=== PATIENT | female | born 1935 | race Two or more races ===

== ENCOUNTER 2021-11-17 22:48 | Observation (INO) | payer OTHER ==
[2021-11-17 23:02] VITALS: BMI 15.9
[2021-11-17] MEDS ORDERED: ACETAMINOPHEN 1000 MG/100 ML BAG IVPB ONE (23:39)
[2021-11-18 01:51] LABS: BASO % 0.3 % (0-2.0); EOS % 0.7 % (0-4.5); LYMPH % 7.4 % (8-40); MCH 22.5 pg (25.7-33.7); MCHC 31.9 g/dl (32.0-36.0); MEAN CELL VOLUME 70.4 fl (80-96); MEAN PLT VOLUME 7.3 fl (7.5-11.1); MONO % 3.5 % (3.8-10.2); NEUT % 88.1 % (42.8-82.8); PLATELET COUNT 530 10^3/uL (134-434); RBC 3.12 M/mm3 (3.60-5.2); RDW 17.3 % (11.6-15.6); WHITE BLOOD COUNT 8.6 K/mm3 (4.0-10.0)
[2021-11-18 02:12] LABS: ALBUMIN 3.4 g/dl (3.4-5.0); BLOOD UREA NITROGEN 24.2 mg/dL (7-18); CALCIUM 8.9 mg/dL (8.5-10.1)
[2021-11-18 02:16] LABS: CREATININE 1.4 mg/dL (0.55-1.3)
[2021-11-18 02:18] LABS: BILIRUBIN,TOTAL 0.8 mg/dL (0.2-1); TOT PROT 8.3 g/dl (6.4-8.2)
[2021-11-18] MEDS ORDERED: ACETAMINOPHEN INJECTION 100 ML IVPB ONE (03:03)
[2021-11-18] MEDS ORDERED: ACETAMINOPHEN 1000 MG/100 ML BAG IVPB PRN (04:27)
[2021-11-18] MEDS ORDERED: SODIUM CHLORIDE 500 ML IV STA (04:55)
[2021-11-18] MEDS ORDERED: SODIUM CHLORIDE 1,000 ML IV SCH (07:45)
[2021-11-18 08:22] LABS: BASO % 0.4 % (0-2.0); EOS % 0.7 % (0-4.5); LYMPH % 14.7 % (8-40); MCH 21.9 pg (25.7-33.7); MCHC 30.8 g/dl (32.0-36.0); MONO % 6.5 % (3.8-10.2); NEUT % 77.7 % (42.8-82.8); PLATELET COUNT 439 10^3/uL (134-434); RBC 2.82 M/mm3 (3.60-5.2); RDW 17.1 % (11.6-15.6)
[2021-11-18 08:36] LABS: HEMOGLOBIN 6.2 GM/dL (10.7-15.3)
[2021-11-18 08:39] LABS: BLOOD UREA NITROGEN 20.4 mg/dL (7-18); CALCIUM 8.6 mg/dL (8.5-10.1)
[2021-11-18 08:41] LABS: ALBUMIN 2.9 g/dl (3.4-5.0)
[2021-11-18 08:42] LABS: PHOSPHOROUS 3.3 mg/dL (2.5-4.9)
[2021-11-18 08:43] LABS: CREATININE 1.4 mg/dL (0.55-1.3)
[2021-11-18 08:44] LABS: BILIRUBIN,TOTAL 0.6 mg/dL (0.2-1); TOT PROT 7.2 g/dl (6.4-8.2)
[2021-11-18] MEDS ORDERED: ASPIRIN 81 MG CHEWABLE TABLETS PO SCH (10:00)
[2021-11-18] MEDS ORDERED: POLYETHYLENE GLYCOL (HEALTHYLAX) 3350 17 GM PACKET PO SCH (10:00)
[2021-11-18] MEDS ORDERED: LOSARTAN POTASSIUM 50 MG TABLET PO SCH (10:00)
[2021-11-18] MEDS ORDERED: FAMOTIDINE 20 MG TABLET PO SCH (10:00)
[2021-11-18] MEDS ORDERED: amLODIPine BESYLATE 5 MG TABLET (FP) PO SCH (10:00)
[2021-11-18] MEDS ORDERED: POLYETHYLENE GLYCOL (HEALTHYLAX) 3350 17 GM PACKET ONE (10:37)
[2021-11-18] MEDS ORDERED: amLODIPine BESYLATE 5 MG TABLET (FP) ONE (10:37)
[2021-11-18] MEDS ORDERED: LOSARTAN POTASSIUM 50 MG TABLET ONE (10:38)
[2021-11-18] MEDS ORDERED: FAMOTIDINE 20 MG TABLET ONE (10:38)
[2021-11-18] MEDS ORDERED: IRON SUCROSE INJECTION 200 MG in SODIUM CHLORIDE 90 ML IVPB ONE (11:00)
[2021-11-18 11:29] LABS: RETICULOCYTES 1.12 % (0.5-1.5)
[2021-11-18 12:44] LABS: ANISOCYTOSIS 2+; MACROCYTOSIS 0; OVALOCYTE 1+
[2021-11-18 13:50] VITALS: PULSE 63
[2021-11-18 18:14] VITALS: BP 135/90; TEMP 97.7
== END 2021-11-18 20:35 | disposition left against medical advice (07) ==
LOC: JER 22:48 → JERBED 11-18 03:33 → UNDOADMOB 11-18 03:33 → JERBED 11-18 19:02 → J4W 11-18 19:10
PROVIDERS: ADMIT Hospitalist; ATTEND Nurse Practitioner Acute Care
PROC: 3E033NZ Introduction of Analgesics, Hypnotics, Sedatives into Peripheral Vein, Percutaneous Approach (ICD-10-PCS; principal; 2021-11-18)
PROC: 3E033GC Introduction of Other Therapeutic Substance into Peripheral Vein, Percutaneous Approach (ICD-10-PCS; 2021-11-18)
PROC: 3E0337Z Introduction of Electrolytic and Water Balance Substance into Peripheral Vein, Percutaneous Approach (ICD-10-PCS; 2021-11-18)
DX: S09.90XA Unspecified injury of head, initial encounter (principal); D50.9 Iron deficiency anemia, unspecified; I10 Essential (primary) hypertension; Z29.8 Encounter for other specified prophylactic measures; V78.1XXA Passenger on bus injured in noncollision transport accident in nontraffic accident, initial encounter; Y93.89 Activity, other specified; Z88.8 Allergy status to other drugs, medicaments and biological substances
CPT/HCPCS: 0241U-QW; 36415; 70450-TC; 71045-TC-FY; 72125-TC; 72170-TC-FY; 73502-TC-LT-FY; 80053; 82272; 82607; 82728; 82746; 83010; 83540; 83550; 83615; 83735; 84100; 84443; 84484; 85025; 85045; 86850; 86900; 86901; 86922; 93005; 93010; 96361; 96365; 96375; 97116-GP; 97161-GP; 99285-25; G0378; J1756

== ENCOUNTER 2022-04-01 15:05 | Inpatient (IN) | payer OTHER ==
[2022-04-01 16:22] LABS: BASO % 0.5 % (0-2.0); EOS % 0.6 % (0-4.5); HEMATOCRIT 20.1 % (32.4-45.2); LYMPH % 13.6 % (8-40); MCH 24.7 pg (25.7-33.7); MCHC 31.1 g/dl (32.0-36.0); MEAN CELL VOLUME 79.5 fl (80-96); MEAN PLT VOLUME 7.2 fl (7.5-11.1); MONO % 3.3 % (3.8-10.2); PLATELET COUNT 449 10^3/uL (134-434); RBC 2.53 M/mm3 (3.60-5.2); RDW 15.8 % (11.6-15.6)
[2022-04-01 16:41] LABS: HEMOGLOBIN 6.2 GM/dL (10.7-15.3)
[2022-04-01 16:42] LABS: CALCIUM 8.7 mg/dL (8.5-10.1); INR 1.12 (0.83-1.09); PROTHROMBIN TIME (PATIENT) 12.9 SEC (9.7-13.0)
[2022-04-01 16:43] LABS: ALBUMIN 2.8 g/dl (3.4-5.0); MAGNESIUM 2.1 mg/dL (1.8-2.4)
[2022-04-01 16:45] LABS: ACTIVATED PTT 24.2 SECONDS (25.2-36.5)
[2022-04-01 16:46] LABS: CREATININE 1.8 mg/dL (0.55-1.3)
[2022-04-01 16:48] LABS: BILIRUBIN,TOTAL 0.4 mg/dL (0.2-1); TOT PROT 6.4 g/dl (6.4-8.2)
[2022-04-01 16:49] LABS: LACTIC ACID 3.3 mmol/L (0.4-2.0)
[2022-04-01 22:38] LABS: EPI CELLS 11 /uL (0-25.1); HYALINE CASTS 0 /uL (0-3.1); URINE APPEARANCE TURBID; URINE BACTERIA 3402 /uL (0-1359); URINE BILIRUBIN NEGATIVE (NEGATIVE); URINE COLOR YELLOW; URINE GLUCOSE (UA) NEGATIVE (NEGATIVE); URINE KETONE NEGATIVE (NEGATIVE); URINE LEUK ESTERASE 3+ (NEGATIVE); URINE NITRITE POSITIVE (NEGATIVE); URINE PROTEIN TRACE (NEGATIVE); URINE RBC 20 /uL (0-23.9); URINE UROBILINOGEN 0.2 mg/dL (0.2-1.0); URINE WBC 3405 /uL (0-25.8)
[2022-04-02] MEDS ORDERED: LACTATED RINGERS SOLUTION 1,000 ML/1,000 ML INFUS.BAG IV SCH ×3 (02:45→17:34)
[2022-04-02] MEDS: INSULIN SLIDING SCALE (NOVOLOG) 1 VIAL SQ SCH ×4 (08:16→22:08)
[2022-04-02] MEDS ORDERED: CEFTRIAXONE 1 GM in DEXTROSE 5%-WATER - 50 ML IVPB SCH (10:00)
[2022-04-02] MEDS ORDERED: amLODIPine BESYLATE 5 MG TABLET (FP) PO SCH (10:00)
[2022-04-02] MEDS ORDERED: PANTOPRAZOLE 40 MG TABLET PO SCH (10:00)
[2022-04-02] MEDS ORDERED: LOSARTAN POTASSIUM 50 MG TABLET PO SCH (10:00)
[2022-04-02] MEDS ORDERED: PANTOPRAZOLE 40 MG TABLET PO ONE (10:36)
[2022-04-02] MEDS ORDERED: LOSARTAN POTASSIUM 50 MG TABLET ONE (10:36)
[2022-04-02] MEDS ORDERED: CEFTRIAXONE 1 GM/50 ML BAG ONE (10:36)
[2022-04-02] MEDS ORDERED: amLODIPine BESYLATE 5 MG TABLET (FP) ONE (10:36)
[2022-04-02 11:51] LABS: HEMOGLOBIN 9.3 GM/dL (10.7-15.3); MCH 26.8 pg (25.7-33.7); MCHC 32.2 g/dl (32.0-36.0); MEAN CELL VOLUME 83.3 fl (80-96); MEAN PLT VOLUME 7.9 fl (7.5-11.1); PLATELET COUNT 328 10^3/uL (134-434); RBC 3.49 M/mm3 (3.60-5.2); RDW 15.2 % (11.6-15.6); WHITE BLOOD COUNT 12.5 K/mm3 (4.0-10.0)
[2022-04-02 12:04] LABS: CALCIUM 8.6 mg/dL (8.5-10.1)
[2022-04-02 12:05] LABS: ALBUMIN 2.8 g/dl (3.4-5.0); BLOOD UREA NITROGEN 36.9 mg/dL (7-18); MAGNESIUM 2.2 mg/dL (1.8-2.4)
[2022-04-02 12:08] LABS: CREATININE 1.8 mg/dL (0.55-1.3); PHOSPHOROUS 3.6 mg/dL (2.5-4.9)
[2022-04-02 12:09] LABS: BILIRUBIN,TOTAL 0.9 mg/dL (0.2-1); TOT PROT 6.5 g/dl (6.4-8.2)
[2022-04-02 17:32] VITALS: BMI 18.8
[2022-04-03] MEDS: INSULIN SLIDING SCALE (NOVOLOG) 1 VIAL SQ SCH ×2 (06:21→14:01)
[2022-04-03 07:00] LABS: BASO % 0.6 % (0-2.0); EOS % 1.7 % (0-4.5); HEMATOCRIT 27.5 % (32.4-45.2); HEMOGLOBIN 9.1 GM/dL (10.7-15.3); LYMPH % 19.6 % (8-40); MCH 27.5 pg (25.7-33.7); MEAN CELL VOLUME 83.1 fl (80-96); MEAN PLT VOLUME 7.4 fl (7.5-11.1); MONO % 8.7 % (3.8-10.2); NEUT % 69.4 % (42.8-82.8); PLATELET COUNT 324 10^3/uL (134-434); RBC 3.31 M/mm3 (3.60-5.2); RDW 15.7 % (11.6-15.6); WHITE BLOOD COUNT 8.4 K/mm3 (4.0-10.0)
[2022-04-03] MEDS: LOSARTAN POTASSIUM 50 MG TABLET PO SCH (09:39)
[2022-04-03] MEDS: PANTOPRAZOLE 40 MG TABLET PO SCH (09:39)
[2022-04-03] MEDS: amLODIPine BESYLATE 5 MG TABLET (FP) PO SCH (09:39)
[2022-04-03] MEDS: CEFTRIAXONE 1 GM in DEXTROSE 5%-WATER - 50 ML IVPB SCH (09:39)
[2022-04-03 14:33] LABS: BLOOD UREA NITROGEN 27.3 mg/dL (7-18); CALCIUM 8.3 mg/dL (8.5-10.1)
[2022-04-03 14:37] LABS: CREATININE 1.8 mg/dL (0.55-1.3)
[2022-04-04 09:10] LABS: BASO % 0.6 % (0-2.0); EOS % 3.9 % (0-4.5); HEMATOCRIT 27.6 % (32.4-45.2); HEMOGLOBIN 9.1 GM/dL (10.7-15.3); LYMPH % 23.6 % (8-40); MCH 27.5 pg (25.7-33.7); MEAN CELL VOLUME 83.2 fl (80-96); MEAN PLT VOLUME 7.7 fl (7.5-11.1); MONO % 10.4 % (3.8-10.2); NEUT % 61.5 % (42.8-82.8); PLATELET COUNT 353 10^3/uL (134-434); RBC 3.31 M/mm3 (3.60-5.2); RDW 15.8 % (11.6-15.6); WHITE BLOOD COUNT 6.5 K/mm3 (4.0-10.0)
[2022-04-04 09:27] LABS: ALBUMIN 2.6 g/dl (3.4-5.0); BLOOD UREA NITROGEN 23.2 mg/dL (7-18); CALCIUM 8.5 mg/dL (8.5-10.1); MAGNESIUM 1.9 mg/dL (1.8-2.4)
[2022-04-04 09:30] LABS: CREATININE 1.7 mg/dL (0.55-1.3)
[2022-04-04 09:32] LABS: BILIRUBIN,TOTAL 0.6 mg/dL (0.2-1); TOT PROT 6.1 g/dl (6.4-8.2)
[2022-04-04] MEDS: LOSARTAN POTASSIUM 50 MG TABLET PO SCH (09:44)
[2022-04-04] MEDS: CEFTRIAXONE 1 GM in DEXTROSE 5%-WATER - 50 ML IVPB SCH (09:45)
[2022-04-04] MEDS: PANTOPRAZOLE 40 MG TABLET PO SCH (09:45)
[2022-04-04] MEDS: amLODIPine BESYLATE 5 MG TABLET (FP) PO SCH (09:45)
[2022-04-04] MEDS ORDERED: BISACODYL 5 MG TABLET.DR (FP) PO ONE (16:00)
[2022-04-04] MEDS ORDERED: PEG 3350/NA SULF BICARB CL/KCL 4000 ML SOLN.RECON PO ONE (17:00)
[2022-04-05 08:34] LABS: INR 1.17 (0.83-1.09); PROTHROMBIN TIME (PATIENT) 13.5 SEC (9.7-13.0)
[2022-04-05 08:35] LABS: BASO % 1.1 % (0-2.0); EOS % 2.4 % (0-4.5); HEMATOCRIT 29.7 % (32.4-45.2); HEMOGLOBIN 9.8 GM/dL (10.7-15.3); LYMPH % 22.6 % (8-40); MCH 27.6 pg (25.7-33.7); MEAN CELL VOLUME 83.7 fl (80-96); MEAN PLT VOLUME 7.5 fl (7.5-11.1); MONO % 7.9 % (3.8-10.2); PLATELET COUNT 384 10^3/uL (134-434); RBC 3.55 M/mm3 (3.60-5.2); WHITE BLOOD COUNT 7.2 K/mm3 (4.0-10.0)
[2022-04-05 09:29] LABS: BLOOD UREA NITROGEN 15.7 mg/dL (7-18); CALCIUM 8.7 mg/dL (8.5-10.1); CREATININE 1.6 mg/dL (0.55-1.3)
[2022-04-05] MEDS: PANTOPRAZOLE 40 MG TABLET PO SCH (11:07)
[2022-04-05] MEDS: LOSARTAN POTASSIUM 50 MG TABLET PO SCH (11:08)
[2022-04-05] MEDS: amLODIPine BESYLATE 5 MG TABLET (FP) PO SCH (11:08)
[2022-04-05] MEDS: CEFTRIAXONE 1 GM in DEXTROSE 5%-WATER - 50 ML IVPB SCH (11:09)
[2022-04-06] MEDS: PANTOPRAZOLE 40 MG TABLET PO SCH (10:13)
[2022-04-06] MEDS: LOSARTAN POTASSIUM 50 MG TABLET PO SCH (10:14)
[2022-04-06] MEDS: CEFTRIAXONE 1 GM in DEXTROSE 5%-WATER - 50 ML IVPB SCH (10:14)
[2022-04-06] MEDS: amLODIPine BESYLATE 5 MG TABLET (FP) PO SCH (10:14)
[2022-04-07 06:40] VITALS: RESP 18
[2022-04-07] MEDS: CEFTRIAXONE 1 GM in DEXTROSE 5%-WATER - 50 ML IVPB SCH (09:44)
[2022-04-07] MEDS: PANTOPRAZOLE 40 MG TABLET PO SCH (09:57)
[2022-04-07] MEDS: amLODIPine BESYLATE 5 MG TABLET (FP) PO SCH (09:57)
[2022-04-07] MEDS: LOSARTAN POTASSIUM 50 MG TABLET PO SCH (09:57)
[2022-04-07] MEDS ORDERED: SODIUM CHLORIDE 0.45% 1,000 ML IV SCH (12:00)
[2022-04-07 14:23] VITALS: BP 143/65; PULSE 60; TEMP 98
== END 2022-04-07 16:40 | disposition home or self-care (01) | DRG 378 ==
LOC: JER 15:05 → JERBED 17:46 → J8W 04-02 16:23
PROVIDERS: ADMIT Internal Medicine
PROC: 0DJD8ZZ Inspection of Lower Intestinal Tract, Via Natural or Artificial Opening Endoscopic (ICD-10-PCS; 2022-04-05)
PROC: 30233N1 Transfusion of Nonautologous Red Blood Cells into Peripheral Vein, Percutaneous Approach (ICD-10-PCS; 2022-04-05)
PROC: 0DB98ZX Excision of Duodenum, Via Natural or Artificial Opening Endoscopic, Diagnostic (ICD-10-PCS; principal; 2022-04-05 12:30)
DX: K26.4 Chronic or unspecified duodenal ulcer with hemorrhage (principal); Z68.1 Body mass index [BMI] 19.9 or less, adult; N39.0 Urinary tract infection, site not specified; N17.9 Acute kidney failure, unspecified; N13.30 Unspecified hydronephrosis; N18.4 Chronic kidney disease, stage 4 (severe); E78.5 Hyperlipidemia, unspecified; R63.4 Abnormal weight loss; E11.9 Type 2 diabetes mellitus without complications; D64.9 Anemia, unspecified; N13.9 Obstructive and reflux uropathy, unspecified; T39.395A Adverse effect of other nonsteroidal anti-inflammatory drugs [NSAID], initial encounter; D89.0 Polyclonal hypergammaglobulinemia; N81.3 Complete uterovaginal prolapse; E87.20 Acidosis, unspecified; G89.29 Other chronic pain; K57.90 Diverticulosis of intestine, part unspecified, without perforation or abscess without bleeding; I12.9 Hypertensive chronic kidney disease with stage 1 through stage 4 chronic kidney disease, or unspecified chronic kidney disease; K44.9 Diaphragmatic hernia without obstruction or gangrene; Z79.1 Long term (current) use of non-steroidal anti-inflammatories (NSAID)
CPT/HCPCS: 36415; 36430; 71045-TC-FY; 74176-TC; 76775-TC; 80048; 80053; 80061; 81003; 82272; 82728; 82962; 82977; 83036; 83540; 83550; 83605; 83615; 83735; 84100; 84443; 85025; 85027; 85045; 85610; 85730; 86850; 86900; 86901; 86922; 87086; 87186; 88305-TC; 93005; 93010; 99285-25; C9803-CS; P9058; U0003; U0005

== ENCOUNTER 2024-06-03 02:12 | Inpatient (IN) | payer OTHER ==
[2024-06-03 03:26] LABS: BASO % 0.2 % (0-2.0); EOS % 0.3 % (0-4.5); HEMATOCRIT 25.7 % (32.4-45.2); HEMOGLOBIN 8.2 GM/dL (10.7-15.3); MCH 27.7 pg (25.7-33.7); MCHC 31.9 g/dl (32.0-36.0); MEAN CELL VOLUME 86.7 fl (80-96); MEAN PLT VOLUME 7.4 fl (7.5-11.1); MONO % 2.8 % (3.8-10.2); NEUT % 88.7 % (42.8-82.8); PLATELET COUNT 280 10^3/uL (134-434); RBC 2.96 M/mm3 (3.60-5.2); RDW 14.4 % (11.6-15.6); WHITE BLOOD COUNT 8.7 K/mm3 (4.0-10.0)
[2024-06-03 03:35] LABS: INR 1.05 (0.83-1.09); PROTHROMBIN TIME (PATIENT) 12.1 SEC (9.7-13.0)
[2024-06-03 03:37] LABS: ACTIVATED PTT 23.1 SECONDS (25.2-36.5)
[2024-06-03 03:46] LABS: POTASSIUM 4.7 mmol/L (3.5-5.1)
[2024-06-03 03:49] LABS: CALCIUM 8.9 mg/dL (8.5-10.1)
[2024-06-03 03:50] LABS: ALBUMIN 3.2 g/dl (3.4-5.0); BLOOD UREA NITROGEN 38.4 mg/dL (7-18)
[2024-06-03 03:53] LABS: CREATININE 1.2 mg/dL (0.55-1.3)
[2024-06-03 03:54] LABS: BILIRUBIN,TOTAL 0.5 mg/dL (0.2-1); TOT PROT 6.8 g/dl (6.4-8.2)
[2024-06-03 04:45] LABS: HIV INTERPRETATION NEGATIVE (NEGATIVE)
[2024-06-03] MEDS ORDERED: LOSARTAN POTASSIUM 50 MG TABLET ONE ×2 (13:17→13:19)
[2024-06-03] MEDS ORDERED: amLODIPine BESYLATE 5 MG TABLET (FP) ONE (13:17)
[2024-06-03] MEDS ORDERED: PANTOPRAZOLE 40 MG TABLET PO ONE (13:17)
[2024-06-03] MEDS: LOSARTAN POTASSIUM 50 MG TABLET PO SCH (14:13)
[2024-06-03] MEDS: amLODIPine BESYLATE 5 MG TABLET (FP) PO SCH (14:13)
[2024-06-03] MEDS: PANTOPRAZOLE 40 MG TABLET PO SCH (14:13)
[2024-06-03 16:11] VITALS: BMI 15.6
[2024-06-03 16:53] LABS: BASO % 0.4 % (0-2.0); EOS % 0.1 % (0-4.5); HEMOGLOBIN 7.6 GM/dL (10.7-15.3); LYMPH % 17.9 % (8-40); MCH 27.2 pg (25.7-33.7); MCHC 31.5 g/dl (32.0-36.0); MEAN CELL VOLUME 86.3 fl (80-96); MEAN PLT VOLUME 7.9 fl (7.5-11.1); MONO % 7.1 % (3.8-10.2); NEUT % 74.5 % (42.8-82.8); PLATELET COUNT 250 10^3/uL (134-434); RBC 2.78 M/mm3 (3.60-5.2); RDW 14.3 % (11.6-15.6); WHITE BLOOD COUNT 6.2 K/mm3 (4.0-10.0)
[2024-06-04 09:29] LABS: BASO % 0.6 % (0-2.0); EOS % 2.9 % (0-4.5); HEMATOCRIT 21.8 % (32.4-45.2); LYMPH % 28.9 % (8-40); MCH 27.7 pg (25.7-33.7); MCHC 31.8 g/dl (32.0-36.0); MEAN PLT VOLUME 8.6 fl (7.5-11.1); MONO % 9.1 % (3.8-10.2); NEUT % 58.5 % (42.8-82.8); PLATELET COUNT 217 10^3/uL (134-434); RBC 2.51 M/mm3 (3.60-5.2); RDW 14.1 % (11.6-15.6); WHITE BLOOD COUNT 4.3 K/mm3 (4.0-10.0)
[2024-06-04 09:36] LABS: POTASSIUM 5.3 mmol/L (3.5-5.1)
[2024-06-04 09:44] LABS: BLOOD UREA NITROGEN 30.9 mg/dL (7-18); CALCIUM 9.1 mg/dL (8.5-10.1)
[2024-06-04 09:46] LABS: HEMOGLOBIN 6.9 GM/dL (10.7-15.3)
[2024-06-04 09:47] LABS: CREATININE 1.4 mg/dL (0.55-1.3)
[2024-06-04 15:35] LABS: ALBUMIN 2.9 g/dl (3.4-5.0)
[2024-06-04 15:38] LABS: BILIRUBIN,DIRECT 0.2 mg/dL (0.0-0.2)
[2024-06-04 15:40] LABS: BILIRUBIN,TOTAL 0.4 mg/dL (0.2-1); TOT PROT 6.2 g/dl (6.4-8.2)
[2024-06-04] MEDS: LIDOCAINE 5% TOPICAL PATCH TP SCH (15:57)
[2024-06-04] MEDS: PEG 3350/NA SULF BICARB CL/KCL 4000 ML SOLN.RECON PO ONE (16:39)
[2024-06-04 17:17] LABS: BASO % 0.4 % (0-2.0); HEMATOCRIT 25.3 % (32.4-45.2); HEMOGLOBIN 8.3 GM/dL (10.7-15.3); LYMPH % 15.6 % (8-40); MCH 28.1 pg (25.7-33.7); MCHC 32.6 g/dl (32.0-36.0); MEAN CELL VOLUME 86.3 fl (80-96); MEAN PLT VOLUME 7.8 fl (7.5-11.1); MONO % 7.2 % (3.8-10.2); NEUT % 75.8 % (42.8-82.8); PLATELET COUNT 223 10^3/uL (134-434); RBC 2.94 M/mm3 (3.60-5.2); RDW 13.9 % (11.6-15.6); WHITE BLOOD COUNT 7.3 K/mm3 (4.0-10.0)
[2024-06-04] MEDS ORDERED: BISACODYL 5 MG TABLET.DR (FP) PO ONE (20:00)
[2024-06-04] MEDS: BISACODYL 5 MG TABLET.DR (FP) PO ONE (22:50)
[2024-06-04] MEDS: LIDOCAINE PATCH REMOVAL MC SCH (22:51)
[2024-06-05 08:37] LABS: BASO % 0.7 % (0-2.0); EOS % 1.1 % (0-4.5); HEMOGLOBIN 8.2 GM/dL (10.7-15.3); MCH 28.2 pg (25.7-33.7); MCHC 32.8 g/dl (32.0-36.0); MEAN PLT VOLUME 9.1 fl (7.5-11.1); MONO % 8.7 % (3.8-10.2); NEUT % 68.5 % (42.8-82.8); PLATELET COUNT 208 10^3/uL (134-434); RBC 2.91 M/mm3 (3.60-5.2); RDW 13.7 % (11.6-15.6); WHITE BLOOD COUNT 6.9 K/mm3 (4.0-10.0)
[2024-06-05 08:59] LABS: POTASSIUM 5.3 mmol/L (3.5-5.1)
[2024-06-05 09:04] LABS: ALBUMIN 2.9 g/dl (3.4-5.0); CALCIUM 8.9 mg/dL (8.5-10.1)
[2024-06-05 09:05] LABS: BLOOD UREA NITROGEN 26.2 mg/dL (7-18)
[2024-06-05 09:08] LABS: CREATININE 1.3 mg/dL (0.55-1.3)
[2024-06-05 09:09] LABS: BILIRUBIN,TOTAL 0.9 mg/dL (0.2-1); TOT PROT 6.4 g/dl (6.4-8.2)
[2024-06-05] MEDS: LACTATED RINGERS SOLUTION 1,000 ML/1,000 ML INFUS.BAG IV SCH (09:54)
[2024-06-05 18:27] VITALS: RESP 18
[2024-06-06 07:49] LABS: BASO % 0.3 % (0-2.0); EOS % 1.6 % (0-4.5); HEMATOCRIT 25.6 % (32.4-45.2); HEMOGLOBIN 8.4 GM/dL (10.7-15.3); MCHC 32.6 g/dl (32.0-36.0); MEAN CELL VOLUME 85.8 fl (80-96); MEAN PLT VOLUME 7.9 fl (7.5-11.1); MONO % 7.5 % (3.8-10.2); NEUT % 69.6 % (42.8-82.8); PLATELET COUNT 248 10^3/uL (134-434); RBC 2.99 M/mm3 (3.60-5.2); RDW 13.8 % (11.6-15.6)
[2024-06-06 08:08] LABS: POTASSIUM 4.3 mmol/L (3.5-5.1)
[2024-06-06 08:12] LABS: ALBUMIN 2.8 g/dl (3.4-5.0); BLOOD UREA NITROGEN 19.3 mg/dL (7-18)
[2024-06-06 08:13] LABS: CALCIUM 8.8 mg/dL (8.5-10.1)
[2024-06-06 08:16] LABS: CREATININE 1.2 mg/dL (0.55-1.3)
[2024-06-06 08:17] LABS: TOT PROT 6.1 g/dl (6.4-8.2)
[2024-06-06 08:18] LABS: BILIRUBIN,TOTAL 0.6 mg/dL (0.2-1)
[2024-06-06 10:40] VITALS: BP 151/73; PULSE 69; TEMP 97.5
== END 2024-06-06 13:04 | disposition home or self-care (01) | DRG 378 ==
LOC: JER 02:12 → JERBED 11:14 → J7W 14:31 → OBSVTOIN 06-04 10:45
PROVIDERS: ADMIT Internal Medicine
PROC: 30233N1 Transfusion of Nonautologous Red Blood Cells into Peripheral Vein, Percutaneous Approach (ICD-10-PCS; principal; 2024-06-04)
PROC: 0DBN8ZX Excision of Sigmoid Colon, Via Natural or Artificial Opening Endoscopic, Diagnostic (ICD-10-PCS; 2024-06-05)
PROC: 0W3P8ZZ Control Bleeding in Gastrointestinal Tract, Via Natural or Artificial Opening Endoscopic (ICD-10-PCS; 2024-06-05)
PROC: 0DB68ZX Excision of Stomach, Via Natural or Artificial Opening Endoscopic, Diagnostic (ICD-10-PCS; 2024-06-05)
PROC: 0DC98ZZ Extirpation of Matter from Duodenum, Via Natural or Artificial Opening Endoscopic (ICD-10-PCS; 2024-06-05)
PROC: 0DB98ZX Excision of Duodenum, Via Natural or Artificial Opening Endoscopic, Diagnostic (ICD-10-PCS; 2024-06-05)
DX: K57.31 Diverticulosis of large intestine without perforation or abscess with bleeding (principal); D62 Acute posthemorrhagic anemia; N13.30 Unspecified hydronephrosis; E44.0 Moderate protein-calorie malnutrition; Z68.1 Body mass index [BMI] 19.9 or less, adult; I95.9 Hypotension, unspecified; R55 Syncope and collapse; I12.9 Hypertensive chronic kidney disease with stage 1 through stage 4 chronic kidney disease, or unspecified chronic kidney disease; N18.30 Chronic kidney disease, stage 3 unspecified; K21.9 Gastro-esophageal reflux disease without esophagitis; K44.9 Diaphragmatic hernia without obstruction or gangrene; K29.60 Other gastritis without bleeding; N81.4 Uterovaginal prolapse, unspecified; Z87.19 Personal history of other diseases of the digestive system; Z90.49 Acquired absence of other specified parts of digestive tract; Y93.9 Activity, unspecified; Y92.098 Other place in other non-institutional residence as the place of occurrence of the external cause; Y99.9 Unspecified external cause status; W18.30XA Fall on same level, unspecified, initial encounter
CPT/HCPCS: 0241U-QW; 36415; 36430; 70450-TC; 71045-TC-FY; 72125-TC; 74174-TC; 80048; 80053; 80076; 82962; 82977; 83036; 83605; 84484; 85025; 85610; 85730; 86803; 86850; 86900; 86901; 86922; 87389; 88305-TC; 88342-TC; 99285-25; G0378; P9058

== ENCOUNTER 2024-06-29 11:27 | Inpatient (IN) | payer OTHER ==
[2024-06-29 12:27] LABS: BASO % 0.5 % (0-2.0); EOS % 0.7 % (0-4.5); HEMATOCRIT 29.2 % (32.4-45.2); HEMOGLOBIN 9.4 GM/dL (10.7-15.3); MCH 28.1 pg (25.7-33.7); MCHC 32.3 g/dl (32.0-36.0); MEAN CELL VOLUME 87.1 fl (80-96); MEAN PLT VOLUME 7.2 fl (7.5-11.1); MONO % 9.2 % (3.8-10.2); NEUT % 71.6 % (42.8-82.8); PLATELET COUNT 337 10^3/uL (134-434); RBC 3.35 M/mm3 (3.60-5.2); RDW 14.2 % (11.6-15.6); WHITE BLOOD COUNT 5.8 K/mm3 (4.0-10.0)
[2024-06-29 12:51] LABS: POTASSIUM 5.8 mmol/L (3.5-5.1)
[2024-06-29 12:53] LABS: ALBUMIN 3.4 g/dl (3.4-5.0); BLOOD UREA NITROGEN 32.6 mg/dL (7-18); CALCIUM 9.5 mg/dL (8.5-10.1)
[2024-06-29 12:56] LABS: CREATININE 1.5 mg/dL (0.55-1.3)
[2024-06-29 12:58] LABS: BILIRUBIN,TOTAL 0.5 mg/dL (0.2-1)
[2024-06-29] MEDS ORDERED: CALCIUM GLUC IN NACL, ISO-OSM 1 GM/50 ML BAG IVPB ONE (13:13)
[2024-06-29] MEDS ORDERED: INSULIN REGULAR HUMAN 100 UNITS/ML *VIAL ONE (13:13)
[2024-06-29] MEDS ORDERED: DEXTROSE 50%-WATER 25 GM/50 ML DISP.SYRIN ONE (13:13)
[2024-06-29] MEDS: CALCIUM GLUCONATE 10% - 1,000 MG/10 ML VIAL IVPB ONE (13:25)
[2024-06-29] MEDS: DEXTROSE 50%-WATER - 25 GM/50 ML VIAL IVPUSH ONE ×2 (13:25→19:09)
[2024-06-29] MEDS: INSULIN REGULAR HUMAN 100 UNITS/ML *VIAL IVPUSH ONE ×2 (13:25→19:03)
[2024-06-29] MEDS: SODIUM CHLORIDE 0.9% 500 ML INFUS.BAG IV ONE (13:26)
[2024-06-29] MEDS ORDERED: SODIUM ZIRCONIUM CYCLOSILICATE (LOKELMA) 10 GM PACKET ONE (13:57)
[2024-06-29] MEDS: SODIUM ZIRCONIUM CYCLOSILICATE (LOKELMA) 5 GM PACKET PO SCH ×2 (14:05→22:09)
[2024-06-29 15:07] LABS: EPI CELLS 18 /uL (0-25.1); HYALINE CASTS 2 /uL (0-3.1); PH,URINE 6.5 (5.0-8.0); URINE APPEARANCE TURBID; URINE BACTERIA 5858 /uL (0-1359); URINE BILIRUBIN NEGATIVE (NEGATIVE); URINE COLOR YELLOW; URINE GLUCOSE (UA) NEGATIVE (NEGATIVE); URINE KETONE NEGATIVE (NEGATIVE); URINE LEUK ESTERASE 3+ (NEGATIVE); URINE NITRITE NEGATIVE (NEGATIVE); URINE PROTEIN 1+ (NEGATIVE); URINE UROBILINOGEN 0.2 mg/dL (0.2-1.0); URINE WBC 13653 /uL (0-25.8)
[2024-06-29 15:27] LABS: POTASSIUM 5.8 mmol/L (3.5-5.1)
[2024-06-29 15:29] LABS: ALBUMIN 3.2 g/dl (3.4-5.0); BLOOD UREA NITROGEN 31.4 mg/dL (7-18); CALCIUM 9.4 mg/dL (8.5-10.1)
[2024-06-29 15:32] LABS: CREATININE 1.4 mg/dL (0.55-1.3)
[2024-06-29 15:34] LABS: BILIRUBIN,TOTAL 0.6 mg/dL (0.2-1); TOT PROT 7.5 g/dl (6.4-8.2)
[2024-06-29] MEDS: CEFTRIAXONE 1,000 MG in DEXTROSE 5%-WATER - 50 ML IVPB ONE (15:34)
[2024-06-29] MEDS ORDERED: CEFTRIAXONE 1 G/50 ML PREMIX 50 ML IVPB ONE (15:35)
[2024-06-29 15:51] LABS: URINE RBC 289 /uL (0-23.9)
[2024-06-29 15:52] LABS: YEAST NONE SEEN (NEGATIVE)
[2024-06-29 17:03] LABS: POTASSIUM 5.6 mmol/L (3.5-5.1)
[2024-06-29 17:04] LABS: CALCIUM 9.1 mg/dL (8.5-10.1)
[2024-06-29 17:05] LABS: BLOOD UREA NITROGEN 31.2 mg/dL (7-18)
[2024-06-29 17:08] LABS: CREATININE 1.4 mg/dL (0.55-1.3)
[2024-06-29 18:14] VITALS: BMI 18.7
[2024-06-29] MEDS: DEXTROSE 50%-WATER 25 GM/50 ML DISP.SYRIN IVPUSH ONE (19:03)
[2024-06-29] MEDS: HEPARIN NA (PORCINE) 5,000 UNITS/ML 1ML VIAL SQ SCH (22:09)
[2024-06-29 22:25] LABS: POTASSIUM 5.3 mmol/L (3.5-5.1)
[2024-06-29 22:27] LABS: BLOOD UREA NITROGEN 30.2 mg/dL (7-18); CALCIUM 9.2 mg/dL (8.5-10.1)
[2024-06-29 22:31] LABS: CREATININE 1.7 mg/dL (0.55-1.3)
[2024-06-30 09:08] LABS: BASO % 0.6 % (0-2.0); EOS % 3.8 % (0-4.5); HEMOGLOBIN 8.6 GM/dL (10.7-15.3); LYMPH % 27.9 % (8-40); MCH 27.7 pg (25.7-33.7); MCHC 31.7 g/dl (32.0-36.0); MEAN CELL VOLUME 87.5 fl (80-96); MEAN PLT VOLUME 7.7 fl (7.5-11.1); MONO % 8.8 % (3.8-10.2); NEUT % 58.9 % (42.8-82.8); PLATELET COUNT 301 10^3/uL (134-434); RBC 3.09 M/mm3 (3.60-5.2); RDW 14.1 % (11.6-15.6); WHITE BLOOD COUNT 5.4 K/mm3 (4.0-10.0)
[2024-06-30 09:17] LABS: CALCIUM 8.8 mg/dL (8.5-10.1); POTASSIUM 5.5 mmol/L (3.5-5.1)
[2024-06-30 09:18] LABS: BLOOD UREA NITROGEN 29.9 mg/dL (7-18)
[2024-06-30 09:21] LABS: CREATININE 1.5 mg/dL (0.55-1.3)
[2024-06-30] MEDS: CEFTRIAXONE 1 G/50 ML PREMIX 50 ML IVPB SCH (10:18)
[2024-06-30] MEDS: PANTOPRAZOLE 20 MG TABLET PO SCH (10:18)
[2024-06-30] MEDS: amLODIPine BESYLATE 5 MG TABLET (FP) PO SCH (10:18)
[2024-06-30] MEDS: SODIUM CHLORIDE 0.45% 1,000 ML IV SCH (16:13)
[2024-07-01 09:23] LABS: BASO % 0.6 % (0-2.0); EOS % 3.2 % (0-4.5); HEMATOCRIT 27.9 % (32.4-45.2); LYMPH % 31.5 % (8-40); MCH 27.9 pg (25.7-33.7); MCHC 32.2 g/dl (32.0-36.0); MEAN CELL VOLUME 86.8 fl (80-96); MEAN PLT VOLUME 7.6 fl (7.5-11.1); MONO % 8.3 % (3.8-10.2); NEUT % 56.4 % (42.8-82.8); PLATELET COUNT 327 10^3/uL (134-434); RBC 3.21 M/mm3 (3.60-5.2); RDW 14.3 % (11.6-15.6); WHITE BLOOD COUNT 4.3 K/mm3 (4.0-10.0)
[2024-07-01 09:53] LABS: CALCIUM 9.1 mg/dL (8.5-10.1)
[2024-07-01 09:57] LABS: CREATININE 1.3 mg/dL (0.55-1.3)
[2024-07-01 09:58] LABS: BILIRUBIN,TOTAL 0.5 mg/dL (0.2-1)
[2024-07-01] MEDS: ACETAMINOPHEN 325 MG TABLET (FP) PO ONE (14:29)
[2024-07-01 14:58] VITALS: BP 155/71; PULSE 54; RESP 18; TEMP 99
[2024-07-02] MEDS ORDERED: SODIUM ZIRCONIUM CYCLOSILICATE (LOKELMA) 5 GM PACKET PO SCH (10:00)
== END 2024-07-01 16:03 | disposition home or self-care (01) | DRG 690 ==
LOC: JER 11:27 → JERBED 15:31 → J4W 17:07 → INTOOBSV 17:28 → OBSVTOIN 17:28
PROVIDERS: ADMIT Internal Medicine; ATTEND Internal Medicine
DX: N13.6 Pyonephrosis (principal); K57.90 Diverticulosis of intestine, part unspecified, without perforation or abscess without bleeding; K21.9 Gastro-esophageal reflux disease without esophagitis; N32.89 Other specified disorders of bladder; R33.9 Retention of urine, unspecified; N81.10 Cystocele, unspecified; N31.9 Neuromuscular dysfunction of bladder, unspecified; E87.5 Hyperkalemia; K44.9 Diaphragmatic hernia without obstruction or gangrene; I12.9 Hypertensive chronic kidney disease with stage 1 through stage 4 chronic kidney disease, or unspecified chronic kidney disease; N18.9 Chronic kidney disease, unspecified; D64.9 Anemia, unspecified; Z87.11 Personal history of peptic ulcer disease
CPT/HCPCS: 36415; 76775-TC; 80048; 80053; 81003; 82962; 83735; 85025; 87086; 87186; 93005; 93010; 99285-25; G0378; J1644